=== PATIENT | female | born 1940 | race Two or more races ===

== ENCOUNTER 2021-10-25 06:26 | Day surgery (SDC) | payer OTHER ==
[~2021-10-25 06:26] MED LIST: CLONAZEPAM0.25 MG PO; COZAAR100 MG PO; FAMOTI PO; FOLIC PO; HYDROCHL PO; OMEPRAZOLE40 MG PO; SINGULAIR10 MG PO; SPIRIVA RESPIMAT4 GM IH; SULFAZINE EC500 MG PO
== END 2021-10-25 11:50 | disposition home or self-care (01) ==
LOC: CIR.AMB 06:26
PROVIDERS: ATTEND Surgery Surgery of the Hand
DX: M65.842 Other synovitis and tenosynovitis, left hand (principal); Z88.0 Allergy status to penicillin; I10 Essential (primary) hypertension; J45.909 Unspecified asthma, uncomplicated; E66.9 Obesity, unspecified; Z20.822 Contact with and (suspected) exposure to COVID-19

== ENCOUNTER → 2022-12-13 | Outpatient (CLI) | payer OTHER | END | disposition home or self-care (01) | LOC: LAB 06:00 → ADM 07:30 → CIR.AMB 12-19 07:30 → EDSTATUS 12-19 07:30 → CIR.AMB 12-19 10:45 | PROVIDERS: ATTEND Surgery Surgery of the Hand | DX: Z20.828 Contact with and (suspected) exposure to other viral communicable diseases (principal) ==

== ENCOUNTER 2023-10-16 06:30 | Day surgery (SDC) | payer OTHER ==
[2023-10-16] MEDS ORDERED: CLINDAMYCIN PHOSPHATE 150 MG/ML (900mg) ONE (09:06)
[2023-10-16] MEDS ORDERED: BUPIVACAINE HCL/MPF 0.5% 30ML VIAL ONE (09:54)
[2023-10-16] MEDS ORDERED: ENALAPRILAT DIHYDRATE 1.25 MG/ML VIAL IV ONE (11:51)
[2023-10-16] MEDS ORDERED: MORPHINE SULFATE 2 MG/ML CARTRIDGE IV ONE (12:30)
== END 2023-10-16 14:25 | disposition home or self-care (01) ==
LOC: CIR.AMB 06:30
PROVIDERS: ATTEND Surgery Surgery of the Hand
DX: M65.841 Other synovitis and tenosynovitis, right hand (principal); Z88.0 Allergy status to penicillin; I10 Essential (primary) hypertension; J45.909 Unspecified asthma, uncomplicated